=== PATIENT | male | born 1965 | race Caucasian/White ===

== ENCOUNTER 2017-07-22 20:29 | Emergency (ER) | payer OTHER ==
[2017-07-22 21:57] LABS: BASOPHIL % 0.3 % (0-2); PLATELET COUNT 255 x10^3mcL (130-400); RED CELL DISTRIBUTION WIDTH 13.8 % (11.5-14.5)
[2017-07-22 22:11] LABS: CALCIUM 9.8 mg/dL (8.5-10.1); CARBON DIOXIDE 27.4 mmol/L (21-32); CREATININE SERUM 3.1 mg/dL (0.7-1.3); POTASSIUM SERUM 4.5 mmol/L (3.5-5.1)
[2017-07-22 22:12] LABS: ALBUMIN 4.9 g/dL (3.4-5.0); BILIRUBIN TOTAL 0.8 mg/dL (0.20-1.00); MAGNESIUM 2.1 mg/dL (1.8-2.4); PHOSPHOROUS 3.9 mg/dL (2.5-4.9)
[2017-07-22 22:13] LABS: TOTAL PROTEIN, SERUM 9.3 g/dL (6.4-8.2)
[2017-07-22 23:40] LABS: UA SPECIFIC GRAVITY >=1.030 (1.005-1.035); microscopic required? YES; urine erythrocyte 2+ (NEGATIVE)
[2017-07-23 00:03] LABS: AMPHETAMINE QUAL UR POSITIVE (NEG <=1000)
[2017-07-23 00:35] VITALS: BP 144/106
[2017-07-23] MEDS ORDERED: LATUDA40 M1 PO (19:11)
[2017-07-23] MEDS ORDERED: LAMOTRIGINE25 MG PO (19:11)
[2017-07-23] MEDS ORDERED: METOPROLOL SUC100 M2 PO (19:11)
[2017-07-23] MEDS ORDERED: PANTOPRAZOLE SO40 M1 PO (19:11)
== END 2017-07-23 00:35 | disposition home or self-care (01) ==
LOC: ED 20:29
PROVIDERS: Emergency Medicine
DX: I12.9 Hypertensive chronic kidney disease with stage 1 through stage 4 chronic kidney disease, or unspecified chronic kidney disease (principal); N18.9 Chronic kidney disease, unspecified; E78.00 Pure hypercholesterolemia, unspecified; F17.200 Nicotine dependence, unspecified, uncomplicated
CPT/HCPCS: J2405; J7030; Q0092

== ENCOUNTER 2017-07-23 15:22 | Inpatient (IN) | payer OTHER ==
[~2017-07-23] VITALS: Ht 170.2 cm; Wt 88.5 kg
[2017-07-23 17:18] LABS: BASOPHIL % 0.6 % (0-2); PLATELET COUNT 197 x10^3mcL (130-400); RED CELL DISTRIBUTION WIDTH 14.1 % (11.5-14.5)
[2017-07-23 17:27] LABS: CALCIUM 9.1 mg/dL (8.5-10.1); CARBON DIOXIDE 29.2 mmol/L (21-32); CREATININE SERUM 1.9 mg/dL (0.7-1.3); POTASSIUM SERUM 3.9 mmol/L (3.5-5.1)
[2017-07-23 17:33] LABS: ALBUMIN 4.3 g/dL (3.4-5.0); TOTAL PROTEIN, SERUM 7.9 g/dL (6.4-8.2)
[2017-07-23 17:39] LABS: UA SPECIFIC GRAVITY 1.025 (1.005-1.035); microscopic required? YES; urine erythrocyte TRACE (NEGATIVE)
[2017-07-23] MEDS ORDERED: PANTOPRAZOLE SO40 M1 PO (19:11)
[2017-07-23] MEDS ORDERED: LATUDA40 M1 PO (19:11)
[2017-07-23] MEDS ORDERED: METOPROLOL SUC100 M2 PO (19:11)
[2017-07-23] MEDS ORDERED: LAMOTRIGINE25 MG PO (19:11)
[2017-07-23 20:12] VITALS: BP 130/79
[2017-07-23 21:16] LABS: MAGNESIUM 2.4 mg/dL (1.8-2.4); PHOSPHOROUS 3.4 mg/dL (2.5-4.9)
[2017-07-23 21:24] LABS: T3 TOTAL 1.55 ng/mL
[2017-07-23 21:27] LABS: FREE T4 1.22 ng/dL (0.76-1.46); FREE THYROXINE INDEX 3.8 ug/dL (1.4-4.5); T4(THYROXINE) 10.3 ug/dL (4.7-13.3)
[2017-07-24 04:19] VITALS: BP 94/47
[2017-07-24 06:52] LABS: BASOPHIL % 0.7 % (0-2); PLATELET COUNT 152 x10^3mcL (130-400); RED CELL DISTRIBUTION WIDTH 14.5 % (11.5-14.5)
[2017-07-24 07:15] LABS: CARBON DIOXIDE 30.5 mmol/L (21-32); CREATININE SERUM 1.6 mg/dL (0.7-1.3); MAGNESIUM 2.1 mg/dL (1.8-2.4); POTASSIUM SERUM 3.9 mmol/L (3.5-5.1)
[2017-07-24 09:03] VITALS: BP 94/47
[2017-07-24 09:45] VITALS: BP 101/63
[2017-07-24 13:51] VITALS: BP 99/55
== END 2017-07-24 17:00 | disposition home or self-care (01) | DRG 351 ==
LOC: ED 15:22 → DU 18:49
PROVIDERS: Emergency Medicine; ADMIT Family Medicine
DX: M62.82 Rhabdomyolysis (principal); N17.0 Acute kidney failure with tubular necrosis; E86.0 Dehydration; F15.10 Other stimulant abuse, uncomplicated; I12.9 Hypertensive chronic kidney disease with stage 1 through stage 4 chronic kidney disease, or unspecified chronic kidney disease; N18.9 Chronic kidney disease, unspecified; F17.210 Nicotine dependence, cigarettes, uncomplicated; Z68.30 Body mass index [BMI] 30.0-30.9, adult; E78.5 Hyperlipidemia, unspecified; F32.9 Major depressive disorder, single episode, unspecified; D64.9 Anemia, unspecified; Z79.899 Other long term (current) drug therapy; Z83.3 Family history of diabetes mellitus; R31.9 Hematuria, unspecified
CPT/HCPCS: 82962; 83880; 84439; J2405; J7030; Q0092

== ENCOUNTER 2017-08-04 02:06 | Observation (INO) | payer OTHER ==
[~2017-08-04] VITALS: Ht 170.2 cm; Wt 90.7 kg
[~2017-08-04 02:06] MED LIST: LAMOTRIGINE25 MG PO; LATUDA40 M1 PO; METOPROLOL SUC100 M2 PO; PANTOPRAZOLE SO40 M1 PO
[2017-08-04 02:59] LABS: BASOPHIL % 0.4 % (0-2); PLATELET COUNT 223 x10^3mcL (130-400); RED CELL DISTRIBUTION WIDTH 14.2 % (11.5-14.5)
[2017-08-04 03:06] LABS: CALCIUM 8.7 mg/dL (8.5-10.1); CARBON DIOXIDE 28.5 mmol/L (21-32); CREATININE SERUM 1.7 mg/dL (0.7-1.3); POTASSIUM SERUM 3.8 mmol/L (3.5-5.1)
[2017-08-04 03:11] LABS: ALBUMIN 3.9 g/dL (3.4-5.0); BILIRUBIN TOTAL 0.51 mg/dL (0.20-1.00); TOTAL PROTEIN, SERUM 7.5 g/dL (6.4-8.2)
[2017-08-04] MEDS ORDERED: LIPI10 PO (05:08)
[2017-08-04 05:36] VITALS: BP 138/78
[2017-08-04 05:47] LABS: AMPHETAMINE QUAL UR POSITIVE (NEG <=1000)
[2017-08-04 05:50] VITALS: BP 138/78
[2017-08-04 05:50] LABS: AMYLASE 35 U/L (25-115); LIPASE 192 IU/L (73-393)
[2017-08-04 06:21] LABS: T3 TOTAL 1.16 ng/mL
[2017-08-04 07:01] LABS: MAGNESIUM 1.9 mg/dL (1.8-2.4); PHOSPHOROUS 2.6 mg/dL (2.5-4.9)
[2017-08-04 08:07] LABS: FREE T4 1.12 ng/dL (0.76-1.46); FREE THYROXINE INDEX 3.1 ug/dL (1.4-4.5); T4(THYROXINE) 8.7 ug/dL (4.7-13.3)
[2017-08-04 09:41] VITALS: BP 123/62
[2017-08-04 13:48] VITALS: BP 116/83
[2017-08-04 16:46] VITALS: BP 136/92
[2017-08-04 21:17] VITALS: BP 122/74
[2017-08-05 05:30] VITALS: BP 145/89
[2017-08-05 07:15] LABS: BASOPHIL % 0.8 % (0-2); PLATELET COUNT 151 x10^3mcL (130-400); RED CELL DISTRIBUTION WIDTH 14.4 % (11.5-14.5)
[2017-08-05 07:46] LABS: CALCIUM 7.8 mg/dL (8.5-10.1); CARBON DIOXIDE 26.5 mmol/L (21-32); CHLORIDE SERUM 107 mmol/L (98-107); CREATININE SERUM 1.2 mg/dL (0.7-1.3); GFR1 > 60 mL/min; GLUCOSE SERUM 82 mg/dL (74-106); MAGNESIUM 1.7 mg/dL (1.8-2.4); PHOSPHOROUS 2.2 mg/dL (2.5-4.9); POTASSIUM SERUM 4.2 mmol/L (3.5-5.1); SODIUM SERUM 140 mmol/L (136-145)
[2017-08-05 10:03] VITALS: BP 132/90
[2017-08-05 12:58] VITALS: BP 137/87
[2017-08-05 14:02] VITALS: BP 132/90
[2017-08-05 14:48] VITALS: Ht 170.2 cm; Wt 90.7 kg
== END 2017-08-05 15:30 | disposition home or self-care (01) | DRG 422 ==
LOC: ED 02:06 → DU 05:00 → MU 08-05 14:37
PROVIDERS: Emergency Medicine; ADMIT Student in an Organized Health Care Education/Training Program
DX: E86.0 Dehydration (principal); M62.82 Rhabdomyolysis; F15.10 Other stimulant abuse, uncomplicated; E83.39 Other disorders of phosphorus metabolism; E83.42 Hypomagnesemia; I12.9 Hypertensive chronic kidney disease with stage 1 through stage 4 chronic kidney disease, or unspecified chronic kidney disease; N18.9 Chronic kidney disease, unspecified; K21.9 Gastro-esophageal reflux disease without esophagitis; I07.1 Rheumatic tricuspid insufficiency; D64.9 Anemia, unspecified; E78.5 Hyperlipidemia, unspecified; F17.210 Nicotine dependence, cigarettes, uncomplicated; Z66 Do not resuscitate; Z68.31 Body mass index [BMI] 31.0-31.9, adult
CPT/HCPCS: 82962; 83880; 84439; G0378; G0480; J2270; J7030; Q0092